=== PATIENT | female | born 1995 | race African-American/Black ===

== ENCOUNTER 2023-07-16 07:28 | Emergency (ER) | payer OTHER ==
[2023-07-16 07:35] VITALS: BP 129/90; PULSE 88; RESP 20; TEMP 97.7; BMI 23.3
[2023-07-16] MEDS ORDERED: ONDANSETRON 4 MG/2 ML VIAL IVPB ONE (08:37)
[2023-07-16 09:09] LABS: BASO % 0.4 % (0-2.0); EOS % 2.3 % (0-4.5); HEMATOCRIT 37.3 % (32.4-45.2); HEMOGLOBIN 12.5 GM/dL (10.7-15.3); LYMPH % 21.6 % (8-40); MCH 29.5 pg (25.7-33.7); MCHC 33.4 g/dl (32.0-36.0); MEAN CELL VOLUME 88.3 fl (80-96); MEAN PLT VOLUME 7.4 fl (7.5-11.1); MONO % 7.1 % (3.8-10.2); NEUT % 68.6 % (42.8-82.8); PLATELET COUNT 392 10^3/uL (134-434); RBC 4.22 M/mm3 (3.60-5.2); RDW 12.9 % (11.6-15.6); WHITE BLOOD COUNT 11.2 K/mm3 (4.0-10.0)
[2023-07-16] MEDS ORDERED: ONDANSETRON 4 MG/2 ML VIAL ONE (09:12)
[2023-07-16 09:26] LABS: POTASSIUM 3.9 mmol/L (3.5-5.1)
[2023-07-16 09:29] LABS: ALBUMIN 3.8 g/dl (3.4-5.0); BLOOD UREA NITROGEN 12.7 mg/dL (7-18); MAGNESIUM 1.8 mg/dL (1.8-2.4)
[2023-07-16 09:32] LABS: CREATININE 0.8 mg/dL (0.55-1.3)
[2023-07-16 09:33] LABS: BILIRUBIN,TOTAL 0.2 mg/dL (0.2-1); TOT PROT 7.2 g/dl (6.4-8.2)
== END 2023-07-16 09:50 | disposition home or self-care (01) ==
LOC: JER 07:28
PROC: 3E033GC Introduction of Other Therapeutic Substance into Peripheral Vein, Percutaneous Approach (ICD-10-PCS; principal; 2023-07-16)
DX: F41.9 Anxiety disorder, unspecified (principal); R42 Dizziness and giddiness; R06.02 Shortness of breath; R68.83 Chills (without fever); R00.2 Palpitations; R11.0 Nausea
CPT/HCPCS: 36415; 80053; 83735; 84703; 85025; 87086; 99284-25

== ENCOUNTER 2023-10-23 11:45 | Emergency (ER) | payer OTHER ==
[2023-10-23 12:28] LABS: HEMATOCRIT 38.7 % (32.4-45.2); MCH 29.8 pg (25.7-33.7); MCHC 33.5 g/dl (32.0-36.0); MEAN CELL VOLUME 88.9 fl (80-96); MEAN PLT VOLUME 7.6 fl (7.5-11.1); PLATELET COUNT 317.8 10^3/uL (134-434); RBC 4.35 10^6/uL (3.60-5.2); RDW 13.5 % (11.6-15.6); WHITE BLOOD COUNT 8.4 10^3/uL (4.0-10.8)
[2023-10-23 12:42] VITALS: BP 106/72; PULSE 76; RESP 16; TEMP 98.9; BMI 23.3
[2023-10-23 12:46] LABS: PLATELET ESTIMATE SLT INCREASE
[2023-10-23 12:48] LABS: ALBUMIN 4.3 g/dl (3.4-5.0); BILIRUBIN,TOTAL 0.4 mg/dl (0.2-1); CALCIUM 9.3 mg/dl (8.5-10.1); CREATININE 0.8 mg/dl (0.6-1.3); POTASSIUM 4.2 mmol/L (3.5-5.1); TOT PROT 6.7 g/dl (6.4-8.2)
== END 2023-10-23 13:17 | disposition home or self-care (01) ==
LOC: FER 11:45
DX: R07.89 Other chest pain (principal)
CPT/HCPCS: 36415; 71046-TC-FY; 80053; 84484; 84703; 85025; 85379; 93005; 99285-25